=== PATIENT | female | born 1990 | race Hispanic/Latino ===

== ENCOUNTER 2018-05-30 18:36 | Emergency (ER) | payer OTHER ==
[~2018-05-30] VITALS: Ht 162.6 cm; Wt 96.2 kg
--- NOTE | 2018-05-30 20:21 | Diagnostic Imaging Report ---
Frontal and lateral views of the chest. HISTORY: Cough, rule out pneumonia COMPARISON: None available. DISCUSSION: Lungs: Low lung volumes result in bibasilar vascular crowding, accentuation of the pulmonary interstitial markings, central pulmonary vasculature, and the cardiac silhouette. Allowing for these limitations, the findings are as follows: No evidence of a consolidative pneumonia or pulmonary alveolar edema. Pleura: No pleural effusion or pneumothorax. Heart and mediastinum: The cardiomediastinal silhouette appears unremarkable. Post surgical changes project at the gastroesophageal junction. Bones and soft tissues: Appear unremarkable. IMPRESSION: No acute radiographic abnormality. Signed by: Dr. Yair Montanez D.O., M.M.M. on 05/30/2018 8:18 PM
[2018-05-30 21:35] VITALS: BP 122/76
== END 2018-05-30 21:37 | disposition home or self-care (01) ==
LOC: ER 18:36
DX: R05 Cough (principal); B34.9 Viral infection, unspecified
CPT/HCPCS: 71046; 99283